=== PATIENT | female | born 1960 | race Caucasian/White ===

== ENCOUNTER 2017-04-22 21:42 | Inpatient (IN) ==
[2017-04-22] MEDS ORDERED: HYDROmorphone 2 MG/ML VIAL ONE (21:54)
[2017-04-22] MEDS ORDERED: ONDANSETRON 4 MG/2 ML VIAL IV ONE (21:56)
[2017-04-22] MEDS ORDERED: HYDROmorphone 2 MG/ML VIAL IV SCH (22:00)
--- NOTE | 2017-04-22 22:01 | Emergency Department Note ---
Lower Extremity Injury HPI - General Chief Complaint: Extremity Injury, Lower Stated Complaint: fall now with left hip pain Time Seen by Provider: 04/22/17 21:58 Mode of arrival: EMS - History of Present Illness HPI Narrative: states she was out at the bar, they were playing darts and there was a dart tournament. She stepped on her 's foot and fell. She landed hard on her left hip. She has had a knee replacement on the left, has a history of fibromyalgia and some bulging disks in her neck. She denies taking chronic pain medications. Had a few drinks tonight but certainly is lucid. She is awake alert and oriented 3 denies any vomiting. No history of any head injury or neck injury, denies any other extremity pain, she is moving her left foot denies any distal numbness or. MD complaint: hip injury - Related Data Home Medications Medication Instructions Recorded Confirmed Esomeprazole Magnesium [Nexium] 20 mg PO DAILY 04/22/17 04/22/17 Allergies Allergy/AdvReac Type Severity Reaction Status Date / Time diphenhydramine AdvReac Intermediate Rash Verified 04/22/17 21:49 [From Benadryl] pseudoephedrine AdvReac Intermediate Rash Verified 04/22/17 21:49 [From Sudafed] Review of Systems All systems ED: reviewed and negative except as stated. Past Medical History - Past Medical History Source: nursing notes reviewed Medical history: Reports: arthritis, fibromyalgia, osteoporosis, other Surgical history ED: Reports: orthopedic, other Family history: Reports: non-contributory - Social History smoking status: Current every day smoker Alcohol use: Reports: Occasionally, Recent Drug use: Reports: none Physical Exam Limitations: no limitations General appearance: alert Head: atraumatic, normocephalic Eye: Present: normal appearance, PERRL, EOMI ENT: normal exam, normal oropharynx Neck: Present: normal inspection, full ROM Chest: Present: normal inspection, symmetric chest wall rise Respiratory: Present: normal lung sounds bilaterally, respiratory distress. Absent: wheezes Cardiovascular: Present: regular rate, normal rhythm, normal heart sounds Abdominal: Present: soft, normal bowel sounds. Absent: distention, tenderness, guarding Extremities: Present: tenderness, other (lleft hip x-ray rotated, shortened). Absent: pedal edema Back: Present: normal inspection, full ROM. Absent: CVA tenderness (R), CVA tenderness (L) Neurological: Present: alert, oriented X3, CN II-XII intact, motor sensory deficit (unable to move left leg), reflexes normal Psychiatric: Present: normal affect, normal mood Skin: Present: warm, dry, intact, other (ssmall abrasion over the left elbow.). Absent: rash Extremity Injury, Lower - MDM Narrative Medical decision making narrative: x-ray showing femoral neck fracture on the left. He is started on pain medications IV fluids in the department, discussed the case with Dr. Ramires and initial orders written. She will be admitted to the hospital. - Lab Data Result diagrams: 04/22/17 21:50 04/22/17 21:50 Disposition Pt seen by CONCESSIONS MANAGER/PA only: No Clinical Impression: Hip fracture Disposition: Xfer As Inpt ([facility]) Condition: Fair Referrals: Jacob Serrano MD [Primary Care Provider] -
[2017-04-22] MEDS ORDERED: HYDROmorphone 2 MG/ML VIAL IV PRN (22:19)
[2017-04-22] MEDS ORDERED: ACETAMINOPHEN 325 MG TABLET PO PRN (22:28)
[2017-04-22 22:45] LABS: Basophils # (Auto) 0.1 K/mcL (0.0-0.3); Basophils % (Auto) 0.4 % (0.0-2.0); Eosinophils # (Auto) 0.2 K/mcL (0.0-0.7); Eosinophils % (Auto) 0.9 % (0.0-7.0); Granulocytes % (Auto) 68.5 % (38.0-78.0); Lymphocytes # (Auto) 3.9 K/mcL (1.5-4.8); Lymphocytes % (Auto) 23.2 % (15.5-49.0); Mean Cell Volume 89.2 fL (80.0-100.0); Mean Corpuscular HGB Conc 33.7 g/dL (31.0-36.0); Mean Corpuscular Hemoglobin 30.1 pg (26.0-34.0); Monocytes # (Auto) 1.2 K/mcL (0.1-0.9); Platelet Count 374 K/mcL (140-440); RBC 4.99 M/mcL (4.00-5.20); Red Cell Distribution Width 12.6 % (11.5-14.5)
[2017-04-22 22:59] LABS: ALT/SGPT 18 U/l (0-40); Albumin/Globulin Ratio 1.5 (1.0-2.3); Alkaline Phosphatase 86 U/L (39-117); Blood Urea Nitrogen 6 mg/dl (6-20)
[2017-04-22] MEDS: HYDROmorphone 2 MG/ML VIAL IV PRN (23:04)
[2017-04-22] MEDS: LACTATED RINGERS 1,000 ML IV SCH (23:05)
[2017-04-22] MEDS ORDERED: POTASSIUM CHLORIDE 10 MEQ in DEXTROSE 5% IN WATER 250 ML IV ONE (23:16)
[2017-04-22] MEDS ORDERED: POTASSIUM CHLORIDE 20 MEQ TABLET PO ONE (23:18)
[2017-04-22 23:31] LABS: Appearance,Urine CLEAR; Bilirubin,Urine NEG (NEG); Color,Urine STRAW; Glucose,Urine (UA) NEGATIVE (NEG); Leukocyte Esterase,Urine NEG /uL (NEG); Protein,Urine NEG (NEG); Specific Gravity,Urine 1.003 (1.000-1.035); Urine Blood NEG mg/dL (<0.03); Urobilinogen,Urine NEG (NEG)
[2017-04-22] MEDS ORDERED: POTASSIUM CHLORIDE 20 MEQ/10 ML VIAL IV ONE (23:37)
[2017-04-22] MEDS ORDERED: POTASSIUM CHLORIDE 10 MEQ TABLET PO ONE (23:43)
[2017-04-23] MEDS: HYDROmorphone 2 MG/ML VIAL IV PRN ×4 (01:18→07:53)
--- NOTE | 2017-04-23 06:46 | XRay Report ---
CLINICAL INFORMATION: Left hip pain. Fall. TECHNIQUE: AP pelvis. AP and lateral left hip COMPARISON: None. FINDINGS: Basicervical left femoral neck fracture with foreshortening and varices angulation deformity. Negative pelvis. No fracture. No lytic lesion. Sacrum and sacroiliac joints are negative. Right hip is negative. IMPRESSION: 1. Left femoral neck fracture with displacement. 2. Negative pelvis and right hip Interpreted and Authenticated by: Ej Tena 04/23/17
--- NOTE | 2017-04-23 06:47 | XRay Report ---
CLINICAL INFORMATION: Fall. Hip fracture. TECHNIQUE: AP supine chest x-ray COMPARISON: None. FINDINGS: Lungs are negative. No parenchymal infiltrate or mass. Heart size and vascularity are normal. Lesley and mediastinum are negative. IMPRESSION: No acute abnormality Interpreted and Authenticated by: Ej Tena 04/23/17
--- NOTE | 2017-04-23 07:39 | Orthopedic History & Physical ---
History of Present Illness Patient information: Note initiated : 04/23/17 at 7:35 am Service Date, if different from initiated Date: [] Patient: Tiffany Pan a 57 y/o F admitted on 04/22/17 for fall now with left hip pain. Chief Complaint: [left hip fracture The patient was playing darts at a bar when she stepped wrong, landing on her 's foot and fell onto her left hip. She states she felt immediate pain and could not stand or weight bear. She was brought to the ER at [facility] for evaluation and found to have a left hip fracture. Orthopaedics was consulted and the patient was admitted. This morning she is in quite a bit of pain with moderate muscle spasming. She denies hitting any other extremity or her head during the event. All of her pain is localized to the left hip. She denies chest pain, SOB, numbness, tingling or calf pain in that extremity. She has a PMH of psoriatic arthritis, GERD, hiatal hernia, fibromyalgia, broken teeth and a remote left total knee arthroplasty by Dr. May. She lives in [place], [place] with her and denies recreational drug use but admits to ETOH use socially. She is an everyday smoker.] HPI: Ms. Pan is a 57 year old F Review of Systems All systems PM: reviewed and no additional remarkable complaints except as stated Musculoskeletal: abnormal gait, deformity, limited range of motion, muscle cramps, myalgias Musculoskeletal: left: hip pain, hip swelling Medications and Allergies Home Medications Medication Instructions Recorded Confirmed Type Esomeprazole Magnesium [Nexium] 20 mg PO DAILY 04/22/17 04/22/17 History Fexofenadine [Kanwal] 180 mg PO DAILYP PRN 04/22/17 04/23/17 History Allergies Allergy/AdvReac Type Severity Reaction Status Date / Time diphenhydramine AdvReac Intermediate Rash Verified 04/22/17 21:49 [From Benadryl] pseudoephedrine AdvReac Intermediate Rash Verified 04/22/17 21:49 [From Sudafed] Physical Examination - Hip left Tenderness with palpation: anterior, posterior, medial, lateral, greater trochanter, other Pain with motion: internal rotation and hip flexion, internal rotation and hip extension, external rotation and hip flexion, external rotation and hip extension, other - Fracture left hip Location of fracture: left femoral neck Appearance: other (impacted and rotated) Compartments: soft Distal extremity neurovascularly intact: Yes Proximal joint involvement: No Distal joint involvement: No Results - Labs Result Diagrams: 04/22/17 21:50 04/22/17 21:50 Labs: Abnormal lab results 04/22/17 04/22/17 04/22/17 Range/Units 21:50 21:50 21:50 WBC 16.9 H (4.5-11.0) K/mcL Gran # 11.5 H (1.8-8.0) K/mcL [place] # (Auto) 1.2 H (0.1-0.9) K/mcL POC Potassium (3.3-5.1) mmol/L Potassium 2.9 L* (3.3-5.1) mmol/L Chloride 94 L (96-108) mmol/L Carbon Dioxide 21 L (22-30) mmol/L Anion Gap 22.0 H (8-16) POC BUN (6-20) mg/dl POC WB Ioniz Calcium (1.16-1.32) mmol/L Ethyl Alcohol 0.204 H (<0.010) gm/dl 04/23/17 Range/Units 06:28 WBC (4.5-11.0) K/mcL Gran # (1.8-8.0) K/mcL [place] # (Auto) (0.1-0.9) K/mcL POC Potassium 3.1 L (3.3-5.1) mmol/L Potassium (3.3-5.1) mmol/L Chloride (96-108) mmol/L Carbon Dioxide (22-30) mmol/L Anion Gap (8-16) POC BUN < 3 L (6-20) mg/dl POC WB Ioniz Calcium 1.10 L (1.16-1.32) mmol/L Ethyl Alcohol (<0.010) gm/dl H & H 04/22/17 Range/Units 21:50 Hgb 15.0 (12.0-15.0) g/dL Hct 44.6 (36.0-48.0) % Coagulation 04/22/17 Range/Units 21:50 INR 1.1 (0.9-1.1) All other labs normal. - Diagnostic results Hip x-ray: image reviewed (impacted and displaced left hip femoral neck fracture ) Assessment and Plan (1) Left displaced femoral neck fracture Assessment: Impacted and displaced left femoral neck fracture Plan: I discussed the fracture pattern with the patient at length as well as treatment options including a hemiarthroplasty vs a total arthroplasty. Due to the patient's age and PMH a total left hip arthroplasty is the recommended procedure at this time. We discussed the procedure in totality including the risks and benefits including but not limited to blood clot, infection, need for revision, pain after surgery and the risks associated with anesthesia including injury the airway, heart or lungs. The patient understands these risks and wishes to proceed with surgery. Surgery is planned for this morning with Dr. Ramires. Status: Acute Exam Temp Pulse Resp BP Pulse Ox 96.8 F L 66 16 104/72 92 04/23/17 06:43 04/23/17 03:55 04/23/17 06:43 04/23/17 06:43 04/23/17 06:43 - General physical appearance well developed, well nourished, moderate distress - Head Head exam IM: Present: atraumatic, normal inspection, normocephalic - Cardiovascular Cardiovascular exam IM: Present: normal rate and rhythm. Absent: gallop, rubs Peripheral pulses: 2+: dorsalis pedis (L), dorsalis pedis (R), posterior tibialis (L), posterior tibialis (R) - Respiratory normal expansion, normal respiratory effort, clear to auscultation - Neurologic Present: normal sensation - Musculoskeletal Present: other (left hip shortened and externally rotated). Absent: normal gait - Psychiatric Present: oriented to time, oriented to person, oriented to place
[2017-04-23] MEDS ORDERED: ceFAZolin 1 GM VIAL IV SCH (08:00)
[2017-04-23] MEDS ORDERED: POTASSIUM CHLORIDE 20 MEQ TABLET PO SCH (08:00)
[2017-04-23] MEDS: LACTATED RINGERS 1,000 ML IV SCH (08:30)
[2017-04-23] MEDS ORDERED: ePHEDrine 50 MG/ML AMPUL IV ONE (09:35)
[2017-04-23] MEDS ORDERED: PROPOFOL 200 MG/20 ML VIAL IV ONE (09:35)
[2017-04-23] MEDS ORDERED: PHENYLEPHRINE 10 MG/ML VIAL IV ONE (09:35)
[2017-04-23] MEDS ORDERED: TRANEXAMIC ACID 1,000 MG/10 ML VIAL IV ONE ×2 (09:35→10:52)
[2017-04-23] MEDS ORDERED: LIDOCAINE HCL/PF 100 MG/5 ML SYRINGE IV ONE (09:35)
[2017-04-23] MEDS ORDERED: fentaNYL 100 MCG/2 ML VIAL IV ONE (09:35)
[2017-04-23] MEDS ORDERED: METOCLOPRAMIDE 10 MG/2 ML VIAL IV ONE (09:35)
[2017-04-23] MEDS ORDERED: MIDAZOLAM 5 MG/5 ML VIAL IV ONE (09:35)
[2017-04-23] MEDS ORDERED: GLYCOPYRROLATE 0.2 MG/ML VIAL IV ONE (09:35)
[2017-04-23] MEDS ORDERED: KETAMINE 100 MG/ML ML IV ONE (09:35)
[2017-04-23] MEDS ORDERED: ONDANSETRON 4 MG/2 ML VIAL IV ONE (09:35)
[2017-04-23] MEDS ORDERED: FAMOTIDINE/PF 20 MG/2 ML VIAL IV ONE (09:35)
[2017-04-23] MEDS ORDERED: GENTAMICIN SULFATE 800 MG/20 ML VIAL IR ONE (10:02)
[2017-04-23] MEDS ORDERED: ACETAMINOPHEN 1,000 MG/100 ML BOTTLE IV ONE (10:30)
[2017-04-23] MEDS ORDERED: LACTATED RINGERS 250 ML IV PRN (10:30)
[2017-04-23] MEDS ORDERED: HYDROmorphone 2 MG/ML VIAL IV PRN (10:30)
[2017-04-23] MEDS ORDERED: NALOXONE HCL 0.4 MG/ML VIAL IV PRN (10:30)
[2017-04-23] MEDS ORDERED: FLUMAZENIL 0.1 MG/ML ML IV PRN (10:30)
[2017-04-23] MEDS ORDERED: IPRATROPIUM/ALBUTEROL 3 ML AMPUL.NEB NEB PRN (10:30)
[2017-04-23] MEDS ORDERED: MEPERIDINE 25 MG/ML SYRINGE IV PRN (10:30)
[2017-04-23] MEDS ORDERED: LACTATED RINGERS 1,000 ML IV SCH (10:30)
[2017-04-23] MEDS ORDERED: BENZOCAINE/MENTHOL 1 LOZENGE PO PRN ×2 (10:30→10:52)
[2017-04-23] MEDS ORDERED: ONDANSETRON 4 MG/2 ML VIAL IV PRN ×2 (10:30→10:52)
[2017-04-23] MEDS ORDERED: METHOCARBAMOL 1,000 MG/10 ML VIAL IV PRN (10:30)
[2017-04-23] MEDS ORDERED: fentaNYL 100 MCG/2 ML VIAL IV PRN (10:30)
[2017-04-23] MEDS ORDERED: FLEETS ADULT ENEMA PR PRN (10:52)
[2017-04-23] MEDS ORDERED: KETOROLAC 30 MG/ML VIAL IV PRN (10:52)
[2017-04-23] MEDS ORDERED: BISACODYL 10 MG SUPP.RECT PR PRN (10:52)
[2017-04-23] MEDS ORDERED: POLYETHYLENE GLYCOL 3350 17 GM PACKET PO PRN (10:52)
[2017-04-23] MEDS ORDERED: METHOCARBAMOL 750 MG TABLET PO PRN (10:52)
[2017-04-23] MEDS ORDERED: MAGNESIUM HYDROXIDE 30 ML ORAL.SUSP PO PRN (10:52)
[2017-04-23] MEDS ORDERED: ONDANSETRON ODT 4 MG TABLET SL PRN (10:52)
--- NOTE | 2017-04-23 10:52 | Brief Operative Note ---
Date of procedure: 04/23/17 Pre-op diagnosis: left femoral neck fracture Post-op diagnosis: same Procedure: left total hip arthroplasty Grafts/Implants: Yes Anesthesia: GETA, spinal Complications: none Surgeon: Ej Ramires Mold Press Operator: Denia Saucedo Estimated blood loss (cc): 200 Specimens Removed/Pathology: none sent Condition: stable Disposition: PACU
[2017-04-23] MEDS: 0.9 % SODIUM CHLORIDE 1,000 ML IV SCH ×2 (11:43→20:11)
--- NOTE | 2017-04-23 12:05 | XRay Report ---
CLINICAL INFORMATION: Postsurgical follow-up. Hip fracture TECHNIQUE: AP pelvis. AP and lateral left hip COMPARISON: None. FINDINGS: Status post left total hip arthroplasty. Prosthetic components are in anatomic positions IMPRESSION: Left total hip arthroplasty Interpreted and Authenticated by: Ej Tena 04/23/17
[2017-04-23] MEDS: 0.9 % SODIUM CHLORIDE 10 ML SYRINGE IV SCH ×2 (14:00→20:11)
[2017-04-23] MEDS: ceFAZolin 1 GM VIAL IV SCH ×2 (16:30→23:58)
[2017-04-23] MEDS: HYDROcodone/APAP 10/325MG TABLET PO PRN ×2 (17:39→22:53)
[2017-04-23] MEDS: DOCUSATE SODIUM 100 MG CAPSULE PO SCH (20:10)
[2017-04-23] MEDS: ASPIRIN 325 MG ENTERIC COATED TABLET PO SCH (20:10)
[2017-04-23] MEDS ORDERED: SENNOSIDES 1 TABLET PO SCH (21:00)
--- NOTE | 2017-04-24 01:41 | Orthopedic Progress Note ---
Subjective Patient information: Note initiated : 04/24/17 at 1:39 am Service Date, if different from initiated Date: [] Patient: Tiffany Pan 57 y/o F admitted on 04/22/17 for fall now with left hip pain. Chief Complaint: [POD #1 s/p left PAMELA Patient doing very well, pain 2/10. Ambulating ok and urinating freely. Denies CP, SOB, numbness, tingling or calf pain. Has no questions or concerns at this time.] Objective Vital signs: Vital Signs Temp Pulse Resp BP Pulse Ox 04/24/17 00:00 97.7 F 67 16 117/73 94 04/23/17 19:42 97.8 F 72 16 124/66 97 04/23/17 16:00 98.1 F 16 130/78 98 04/23/17 15:01 129/78 96 04/23/17 14:01 121/76 96 04/23/17 13:31 122/78 96 04/23/17 13:01 124/77 96 04/23/17 12:46 128/78 97 04/23/17 12:31 117/74 98 04/23/17 12:17 118/68 99 04/23/17 12:01 118/76 97 04/23/17 11:54 97.2 F 98 H 14 129/69 98 04/23/17 11:45 92 H 17 125/60 100 04/23/17 11:35 97 H 19 118/54 100 04/23/17 11:30 102 H 19 136/76 100 04/23/17 11:25 110 H 17 119/72 99 04/23/17 11:20 97.4 F 108 H 12 115/88 98 04/23/17 06:43 96.8 F L 16 104/72 92 04/23/17 03:55 97.9 F 66 14 103/68 94 Intake and Output 04/23/17 04/23/17 04/24/17 13:59 21:59 05:59 Intake Total 6100 / 6100 1440 / 1440 1800 / 1800 Output Total 1450 / 1450 800 / 800 1850 / 1850 Balance 4650 / 4650 640 / 640 -50 / -50 Intake: IV 3100 / 3100 1000 / 1000 Lactated Ringers 1,000 ml @ 20 3000 / 3000 mls/hr IV .Q24H [facility] Rx#: [id number] Oral 1440 / 1440 800 / 800 IV - Manual Only 3000 / 3000 Output: Urine Catheter Amount 1150 / 1150 800 / 800 1850 / 1850 Estimated Blood Loss 300 / 300 Other: Meal Dinner Percent of Meal Consumed 75% Feeding Ability Independent Weight 185 lb 8 oz Patient Weight 04/24/17 05:59 Weight 185 lb 8 oz Intake & Output: Intake & Output 04/23/17 04/23/17 04/24/17 13:59 21:59 05:59 Intake Total 6100 / 6100 1440 / 1440 1800 / 1800 Output Total 1450 / 1450 800 / 800 1850 / 1850 Balance 4650 / 4650 640 / 640 -50 / -50 Weight 185 lb 8 oz Intake: IV 3100 / 3100 1000 / 1000 Lactated Ringers 1,000 ml @ 20 3000 / 3000 mls/hr IV .Q24H [facility] Rx#: [id number] Oral 1440 / 1440 800 / 800 IV - Manual Only 3000 / 3000 Output: Urine Catheter Amount 1150 / 1150 800 / 800 1850 / 1850 Estimated Blood Loss 300 / 300 Other: Meal Dinner Percent of Meal Consumed 75% Feeding Ability Independent Incision: Yes healing, No draining, No red, No swollen, No inflamed, Yes clean and dry Incision clean and dry: Yes Dressing: Yes clean, Yes dry, Yes intact Weight bearing status: as tolerated Neurological exam IM: Yes alert, Yes oriented X3 Extremities exam IM: No calf tenderness, Yes normal capillary refill, Yes normal inspection, Yes Foot pink and warm, Yes neurovascular intact - [place] Pulses Peripheral pulses: 2+: dorsalis pedis (L), dorsalis pedis (R), posterior tibialis (L), posterior tibialis (R) - Diagnostic Results Hip x-ray: image reviewed - Labs CBC & BMP: 04/24/17 04:19 04/22/17 21:50 Labs: Orthopedic Labs 04/22/17 21:50 PT 13.8 INR 1.1 04/22/17 21:50 Hgb 15.0 Hct 44.6 Assessment and Plan (1) Left displaced femoral neck fracture Assessment: POD #1 s/p left PAMELA following left displaced femoral neck fracture -d/c to home -pain control -DVT prophylaxis with ASA 325mg BID -WBAT with walker -dermabond instructions -posterior hip precautions -outpatient PT -f/u in clinic in 10-14 days for post op Status: Acute
--- NOTE | 2017-04-24 01:44 | Discharge Summary ---
Providers - Providers Patient information: Note initiated : 04/24/17 at 1:42 am Service Date, if different from initiated Date: [] Patient: Tiffany Pan 57 y/o F admitted on 04/22/17 for fall now with left hip pain. Chief Complaint: [POD #1 s/p left PAMELA Patient sleeping comfortably. Nurse states tequila was d/c earlier this evening. Patient unable to ambulate last night because her left lower extremity was still numb from spinal. She reported her pain to be 3/10.] Discharge date: 04/24/17 Hospitalization Hospital course: Patient admitted to hospital on 04/22/17 for left hip fracture. Was taken to the OR for a left total hip replacement on 04/23/17 which went on without complication. She was kept overnight for observation and pain control. When the patient is ready, she may transfer to home and follow up in clinic in 10-14 days. Discharge diagnosis: hip fracture Exam - Exam Incision healing: Yes Incision draining: No Incision red: No Incision swollen: No Incision inflamed: No Clean and dry: Yes Weight bearing status: as tolerated (with assistive device) Range of motion: full AROM b/l ankles/feet. DP/PT pulses 2+ b/l Ortho Discharge - PAMELA - Patient Instructions Diet: Regular Diet Activity: activity as tolerated, ambulate with assistive device, weight bearing as tolerated Total Hip Protocol: Follow activity instructions as provided by Physical Therapy. Dressing Care: May shower in 2 days, Other (dermabond) - Problem Maintenance (1) Left displaced femoral neck fracture Status: Acute - Follow Up Plan Follow Up Appointments: Jacob Serrano MD [Primary Care Provider] - Denia Saucedo PA-C [Physician Glassware Defect Repairer] - (10-14 days for post op left hip) Disposition: Home, Self-Care Prognosis: Good Rehab Potential: Good I certify that the patient requires SNF services: No Overall status at discharge: patient is progressing back to baseline - Orders For Discharge Prescriptions: Aspirin [Ecotrin] 325 mg PO BID #60 tab.ec HYDROcodone/APAP 10/325MG [[place] 10-325Mg] 1 - 2 tab PO Q4HP PRN #60 tab PRN Reason: Pain Level 3-6 Additional Discharge Orders: Physical Therapy at Discharge - PAMELA Location: Determined By Patient Walker Location: Determined By Patient Pending Studies Resuscitation Status Full Code Diet Regular Diet Start Rohwer Apr 23 1053 Hydrocodone Bitart/Acetaminophen ([place] 10/325mg) 0 tab PO Q4HP PRN PRN Reason: PAIN LEVEL 3-6 Last Admin: 04/23/17 22:53 Dose: 2 tab Admin: 04/23/17 17:39 Dose: 1 tab Aspirin (Ecotrin) 325 mg PO BID [facility] Last Admin: 04/23/17 20:10 Dose: 325 mg Docusate Sodium (Colace) 100 mg PO BID [facility] Last Admin: 04/23/17 20:10 Dose: 100 mg Sodium Chloride (Sodium Chloride 0.9%) 1,000 mls @ 125 mls/hr IV .Q8H [facility] Last Admin: 04/23/17 20:11 Dose: Admin: 04/23/17 11:43 Dose: 125 mls/hr Morphine Sulfate (Morphine) 0 mg IV Q1HP PRN PRN Reason: PAIN LEVEL > 6 Last Admin: 04/23/17 16:31 Dose: 4 mg Senna (Senokot) 2 tab PO HS [facility] Last Admin: 04/23/17 20:11 Dose: Not Given Sodium Chloride (Saline Flush) 10 ml IV Q8 [facility] Last Admin: 04/23/17 20:11 Dose: Not Given Admin: 04/23/17 14:00 Dose: Not Given Shift Summary 04/23/17 16:20 Shift Summary by Zaynab Hammond Patient is A&O, she had surgery today to left hip. She has dressing CDI, she returned to floor at noon. Has had no C/O pain this shift only a little stinging sensation. She has psorasis to elbows, under breasts, and on both legs , Abrasion to left elbow from falling down yesterday with mepilex. SHe has LR running still, she came back from surgery with 1000 cc's, she needs to have NS. She is current everyday smoker, she is on 2 l oxygen via [place], sats in the high 90's. Has FC in place with yellow urine. Wedge in place. Initialized on 04/23/17 16:20 - END OF NOTE
[2017-04-24] MEDS: 0.9 % SODIUM CHLORIDE 1,000 ML IV SCH ×2 (03:27→13:13)
[2017-04-24] MEDS: 0.9 % SODIUM CHLORIDE 10 ML SYRINGE IV SCH (05:53)
[2017-04-24] MEDS: HYDROcodone/APAP 10/325MG TABLET PO PRN ×2 (05:55→10:42)
[2017-04-24] MEDS ORDERED: PANTOPRAZOLE 40 MG TABLET PO SCH (07:30)
[2017-04-24] MEDS: DOCUSATE SODIUM 100 MG CAPSULE PO SCH (08:31)
[2017-04-24] MEDS: ASPIRIN 325 MG ENTERIC COATED TABLET PO SCH (08:32)
--- NOTE | 2017-04-24 08:57 | Operative Note ---
DATE OF OPERATION: 04/23/2017 PREOPERATIVE DIAGNOSES: 1. Garden IV femoral neck fracture, left hip. 2. Psoriatic arthritis. POSTOPERATIVE DIAGNOSES: 1. Garden IV femoral neck fracture, left hip. 2. Psoriatic arthritis. PROCEDURE: Left total hip arthroplasty. SURGEON: Gisselle Ramires M.D. INFRASTRUCTURE DEVELOPER SURGEON: Denia Saucedo PA-C. ANESTHESIA: Spinal with LMA assist. ESTIMATED BLOOD LOSS: 200 mL. COMPLICATIONS: None noted. SPECIMENS REMOVED: None. DRAINS: None. IMPLANTS: DePuy Taylors Gription acetabular shell 52 mm; DePuy [place] Hole Eliminator PS; DePuy Tri-Lock BPS femoral stem with Gription, size 4 high-offset; DePuy Taylors Altrx polyethylene acetabular liner, neutral 36 x 52; DePuy Biolox delta ceramic femoral head +5, 36 mm. INDICATIONS: The patient fell last night while playing darts with her . She sustained a [place] III/Garden IV femoral neck fracture. Due to the fracture type and her age, we felt that fixation would not be the best option. However, she has a history of psoriatic arthritis and some hip pain previously so they felt that a total hip arthroplasty would be her best option. The risks and benefits were discussed with the patient in detail including, but not limited to, the risks of anesthesia, problems with the heart or lungs related to anesthesia, infection, compromise or injury to the nerves and blood vessels, deep venous thrombosis, pulmonary embolism, pneumonia, continued pain after surgery, worsening pain or symptoms after surgery, swelling, loss of motion, instability, leg length discrepancy, and need for repeat surgery. DESCRIPTION OF PROCEDURE: The patient was seen in pre-anesthesia waiting room where all questions were answered and the correct side and site were identified and marked. The patient was then brought to the operating room and administered the anesthetic and given pre-operative antibiotics. A time-out was then called. The patient was placed in the lateral decubitus position with all prominences well-padded using the [place] frame and the extremity was prepped and draped in the usual sterile fashion. Anesthesia gave the patient 1 gm of tranexamic acid via an intravenous route. A standard posterior approach was made. We dissected through the skin and subcutaneous tissue to the deep fascia. The deep fascia was split in line with the incision and a Charnley retractor was placed. We exposed, tagged, and incised the short external rotators and piriformis tendon and retracted them posteriorly to help protect the sciatic nerve which was palpated throughout the case. We then performed a T-capsulotomy and tagged the capsule edges. Prior to dislocating the hip, we set a length and offset gauge from a Steinmann pin in the iliac wing to a aubree on the greater trochanter. The hip was then dislocated and a femoral neck osteotomy was performed to the pre-surgical templated level off the lesser trochanter. The head and cut portion of the neck was removed and sized. We next turned our attention to the acetabulum. Retractors were placed for optimal visualization. A complete labral excision was performed. The capsule was preserved for later closure. We began reaming using anatomic landmarks with the DePuy Taylors acetabular system. We medialized the cup and reamed up to provide good fill and coverage of the trial. When the trial was stable and appropriately positioned with approximately 20 degrees of anteversion and 45 degrees of abduction, we impacted the DePuy Taylors cup and placed a cancellous screw in the posterior-superior quadrant. Osteophytes were removed from around the shell. We placed the trial liner and turned our attention to the femur. We placed retractors for visualization, internally rotated the femur, and established intramedullary access. We broached using the DePuy Tri-Lock stem to a stable platform medial, lateral, and rotationally with the appropriate version. We then performed a calcar reaming off the broach. Trials were then placed and optimized for leg length and stability. We used the leg length and offset guide to confirm our trials. Best stability, length, and offset characteristics were obtained with these sizes. We removed all trials and impacted the polyethylene acetabular liner in a standard fashion after a thorough irrigation. We then impacted the femoral stem to its broached location and placed the head. Final reduction was performed. Again, good stability, leg length, and offset characteristics were noted. We irrigated with three liters of antibiotic saline. We closed the capsule with #2 FiberWire. We closed the fascia with a combination of looped #0 Maxon and #0 Vicryl. We closed the subcutaneous tissue and skin in layers out to rashad in the skin. A sterile pressure dressing and abduction wedge was applied. All needle and sponge counts were correct. The patient was transferred to the recovery room in stable condition. LYNSEY:harvinder Job ID: [id number] Doc ID: [id number] Gisselle Ramires MD
== END 2017-04-24 13:41 | disposition home or self-care (01) | DRG 470 ==
LOC: ED 21:42 → MEDSUR 22:50
PROVIDERS: ADMIT Orthopaedic Surgery Sports Medicine; ATTEND Orthopaedic Surgery Sports Medicine